=== PATIENT | male | born 1960 | race African-American/Black ===

== ENCOUNTER → 2016-05-30 | Outpatient (CLI) | payer OTHER ==
[2016-05-30 10:02] LABS: CALCIUM 9.4 mg/dL (8.5-10.1); CREATININE 1.1 mg/dL (0.7-1.3); GFR 83.5; POTASSIUM 5.8 mmol/L (3.5-5.1); TOTAL BILIRUBIN 0.9 mg/dL (0.2-1.0); TOTAL PROTEIN 8.2 g/dL (6.4-8.2)
[2016-05-30 10:04] LABS: CHOLESTEROL/HDL RATIO 2.3
== END | disposition home or self-care (01) ==
LOC: LAB 08:52
PROVIDERS: ATTEND Family Medicine
DX: E78.5 Hyperlipidemia, unspecified (principal)
CPT/HCPCS: 36415; 80053; 80061; 83036

== ENCOUNTER → 2016-07-10 | Outpatient (CLI) | payer OTHER ==
[2016-07-10 11:32] LABS: CALCIUM 9.5 mg/dL (8.5-10.1); GFR 93.2; POTASSIUM 4.4 mmol/L (3.5-5.1)
== END | disposition home or self-care (01) ==
LOC: LAB 10:52
PROVIDERS: ATTEND Family Medicine
DX: I10 Essential (primary) hypertension (principal)
CPT/HCPCS: 36415; 80048

== ENCOUNTER → 2016-08-09 | Outpatient (CLI) | payer OTHER ==
[2016-08-09 11:53] LABS: CALCIUM 9.3 mg/dL (8.5-10.1); CHOLESTEROL/HDL RATIO 2.3; CREATININE 0.9 mg/dL (0.7-1.3); GFR 105.2; POTASSIUM 4.6 mmol/L (3.5-5.1)
== END | disposition home or self-care (01) ==
LOC: LAB 11:00
PROVIDERS: ATTEND Family Medicine
DX: E78.5 Hyperlipidemia, unspecified (principal)
CPT/HCPCS: 36415; 80048; 80061; 83735

== ENCOUNTER → 2017-02-05 | Outpatient (CLI) | payer OTHER ==
[2017-02-05 09:01] LABS: ALBUMIN 3.6 g/dL (3.4-5.0); ALBUMIN/GLOBULIN RATIO 0.8 (1.0-1.7); CALCIUM 9.3 mg/dL (8.5-10.1); CREATININE 1.1 mg/dL (0.7-1.3); GFR 83.2; MAGNESIUM 2.2 mg/dL (1.8-2.4); POTASSIUM 4.7 mmol/L (3.5-5.1); TOTAL BILIRUBIN 0.8 mg/dL (0.2-1.0); TOTAL PROTEIN 8.1 g/dL (6.4-8.2)
[2017-02-05 09:04] LABS: CHOLESTEROL/HDL RATIO 2.8
== END | disposition home or self-care (01) ==
LOC: LAB 08:35
PROVIDERS: ATTEND Family Medicine
DX: Z12.5 Encounter for screening for malignant neoplasm of prostate (principal); E83.42 Hypomagnesemia; R73.09 Other abnormal glucose
CPT/HCPCS: 36415; 80053; 80061; 83036; 83735; G0103

== ENCOUNTER → 2018-01-08 | Outpatient (CLI) | payer OTHER ==
[2018-01-08 08:44] LABS: ALBUMIN 3.9 g/dL (3.4-5.0); ALBUMIN/GLOBULIN RATIO 0.8 (1.0-1.7); CALCIUM 9.5 mg/dL (8.5-10.1); CREATININE 1.2 mg/dL (0.7-1.3); POTASSIUM 4.7 mmol/L (3.5-5.1); TOTAL BILIRUBIN 0.9 mg/dL (0.2-1.0); TOTAL PROTEIN 8.7 g/dL (6.4-8.2)
[2018-01-08 08:45] LABS: CHOLESTEROL/HDL RATIO 2.9
[2018-01-08 15:29] LABS: HEMOGLOBIN A1C 5.8 % (4.8-5.6)
== END | disposition home or self-care (01) ==
LOC: LAB 08:04
PROVIDERS: ATTEND Family Medicine
DX: Z12.5 Encounter for screening for malignant neoplasm of prostate (principal); E78.5 Hyperlipidemia, unspecified; E74.39 Other disorders of intestinal carbohydrate absorption; I10 Essential (primary) hypertension; E83.42 Hypomagnesemia
CPT/HCPCS: 36415; 80053; 80061; 83036; G0103

== ENCOUNTER 2018-03-14 18:43 | Emergency (ER) | payer OTHER ==
[~2018-03-14] VITALS: Ht 182.9 cm; Wt 175.1 kg
[2018-03-14 18:54] VITALS: BP 154/86
--- NOTE | 2018-03-14 19:21 | PHYS DOC ---
Past Medical History Past Medical History: Arthritis, High Cholesterol, Hypertension Additional Past Medical Histor: sleep apnea Past Surgical History: No Surgical History Alcohol Use: Occasionally Drug Use: None Adult General Chief Complaint Chief Complaint: BACK PAIN - NO INJURY [facility] HPI Patient is a 57 year old AA male who presents to emergency room with complaints of mid upper back pain for the last month. Patient states he saw his primary care doctor who prescribed him 800 mg of ibuprofen 3 times a day, however he did not start taking that medication as prescribed. Patient denies any known injury, saddle anesthesia, numbness, tingling, or weakness. Patient states that the pain increases when he changes positions. He denies any chest pain, palpitations, increased shortness of breath, nausea, vomiting, or abdominal pain. Review of Systems Review of Systems Constitutional: Denies fever or chills, obese [] Respiratory: Denies shortness of breath, reports recent dry cough Cardiovascular: No additional information not addressed in HPI [] GI: Denies abdominal pain, nausea, vomiting, or diarrhea [] Musculoskeletal: See history of present illness Integument: Denies rash or skin lesions [] Neurologic: Denies headache, focal weakness or sensory changes [] All other systems were reviewed and found to be within normal limits, except as documented in this note. Allergies Allergies Allergies Coded Allergies Type Severity Reaction Last Updated Verified No Known Drug Allergies 03/14/18 No Physical Exam Physical Exam Constitutional: Well developed, well nourished, no acute distress, non-toxic appearance, obese [] HENT: Normocephalic, atraumatic, bilateral external ears normal, oropharynx moist, no oral exudates, nose normal. [] Eyes: PERRLA, conjunctiva normal, no discharge. [] Neck: Normal range of motion, no tenderness, supple, no stridor. [] Cardiovascular:Heart rate regular rhythm, no murmur [] Lungs & Thorax: Bilateral breath sounds clear to auscultation [] Skin: Warm, dry, no erythema, no rash. [] Back: T-spine tenderness to palpation Extremities: No cyanosis, no clubbing, ROM intact, no edema. [] Neurologic: Alert and oriented X 3, normal motor function, normal sensory function, no focal deficits noted. [] Psychologic: Affect normal, judgement normal, mood normal. [] Current Patient Data Vital Signs Vital Signs Date Time Temp Pulse Resp B/P (MAP) Pulse Ox O2 Delivery O2 Flow Rate FiO2 03/14/18 18:54 98.5 76 20 154/86 (108) 96 Room Air 98.5 EKG EKG [] Radiology/Procedures Radiology/Procedures Tspine xray negative for any acute findings read by Dr. Smiley[] Course & Med Decision Making Course & Med Decision Making Pertinent Labs and Imaging studies reviewed. (See chart for details) Dx: thoracic strain Continue taking ibuprofen 800 mg tid. Prescription for norflex. Recommend application of ice or heat as needed for comfort. Follow up with PCP next week as planned, return to ER if symptoms worsen. []Patient verbalized an understanding of home care, medications, follow-up, and return to ED instructions and was in agreement with the plan of care. Dragon Disclaimer Dragon Disclaimer This electronic medical record was generated, in whole or in part, using a voice recognition dictation system. Departure Departure Impression: Primary Impression: Midline thoracic back pain Disposition: HOME, SELF-CARE Condition: STABLE Referrals: PITA MCKAY MD (PCP) Patient Instructions: Back Pain, Adult, [id number] Additional Instructions: Fill prescription and use as directed. Continue taking ibuprofen 800 mg tid. Recommend application of ice or heat as needed for comfort. Follow up with PCP next week as planned, return to ER if symptoms worsen. [] Scripts Orphenadrine Citrate (ORPHENADRINE CITRATE) 100 Mg Tablet.er 1 TAB PO BID PRN for PAIN for 10 Days, #20 TAB 0 Refills Prov: RIZWANA [employer] 03/14/18 Problem Qualifiers Primary Impression: Midline thoracic back pain Chronicity: unspecified Qualified Codes: M54.6 - Pain in thoracic spine RIZWANA [employer] Mar 14, 2018 19:21
[2018-03-14] MEDS ORDERED: ORPH100T PO (20:06)
--- NOTE | 2018-03-14 23:51 | RAD ---
Examination: THORACIC SPINE 3V History: upper spine pain, no injury Comparison/Correlation: None Findings: A total of 4 images of the thoracic spine were obtained including frontal, lateral, and swimmer's lateral views. Alignment is normal. Vertebral body heights are adequate. Spurring of the lower thoracic spine is significant anteriorly. Disc space narrowing at multiple levels of the mid to lower thoracic spine is mild. Impression: Degenerative spurring of the lower thoracic spine. Electronically signed by: Omar Shoemaker MD (03/14/2018 11:48 PM) [facility]
== END 2018-03-14 20:07 | disposition home or self-care (01) ==
LOC: ER 18:43
DX: M54.6 Pain in thoracic spine (principal); M19.90 Unspecified osteoarthritis, unspecified site; E78.00 Pure hypercholesterolemia, unspecified; I10 Essential (primary) hypertension; G47.30 Sleep apnea, unspecified
CPT/HCPCS: 72072; 99284

== ENCOUNTER → 2018-07-08 | Outpatient (CLI) | payer OTHER ==
[~2018-07-08] MED LIST: ORPH100T PO
[2018-07-08 08:31] LABS: BASO # 0.1 x10^3/uL (0.0-0.2); BASO % 1 % (0-3); EOS # 0.2 x10^3/uL (0.0-0.7); EOS % 3 % (0-3); HEMOGLOBIN 14.2 g/dL (13.0-17.5); LYMPH # 1.8 x10^3/uL (1.0-4.8); LYMPH % 25 % (24-48); MEAN CORPUSCULAR HEMOGLOBIN 30 pg (25-35); MEAN CORPUSCULAR HGB CONC 34 g/dL (31-37); MEAN CORPUSCULAR VOLUME 89 fL (79-100); MONO # 0.8 x10^3/uL (0.0-1.1); MONO % 12 % (0-9); NEUT # 4.3 x10^3uL (1.8-7.7); NEUT % 60 % (31-73); PLATELET COUNT 235 x10^3/uL (140-400); RED BLOOD COUNT 4.72 x10^6/uL (4.30-5.70); RED CELL DISTRIBUTION WIDTH 14.4 % (11.5-14.5); WHITE BLOOD COUNT 7.3 x10^3/uL (4.0-11.0)
[2018-07-08 08:57] LABS: ALBUMIN 4.3 g/dL (3.4-5.0); CALCIUM 9.3 mg/dL (8.5-10.1); CREATININE 0.8 mg/dL (0.7-1.3); GFR 119.7; POTASSIUM 4.3 mmol/L (3.5-5.1); TOTAL BILIRUBIN 0.3 mg/dL (0.2-1.0); TOTAL PROTEIN 8.4 g/dL (6.4-8.2)
[2018-07-08 08:59] LABS: CHOLESTEROL/HDL RATIO 4.6
[2018-07-08 22:09] LABS: HEMOGLOBIN A1C 5.9 % (4.8-5.6)
== END | disposition home or self-care (01) ==
LOC: LAB 08:13
PROVIDERS: ATTEND Family Medicine
DX: E74.39 Other disorders of intestinal carbohydrate absorption (principal); I10 Essential (primary) hypertension; E78.5 Hyperlipidemia, unspecified
CPT/HCPCS: 36415; 80053; 80061; 83036; 85025

== ENCOUNTER → 2018-11-18 | Outpatient (CLI) | payer OTHER ==
[~2018-11-18] MED LIST changes: +ZOLPIDEM 5 MG TABLET. PO ONE
--- NOTE | 2018-11-19 13:04 | SLEEP ---
DATE OF STUDY: 11/18/2018 ATTENDING PHYSICIAN: Dr. Ruiz. The patient is a 58-year-old who weighs 375 pounds with a BMI of 52. The patient has history of PARAM diagnosed at another facility. The patient has lost 20 pounds since this last study and was referred back for a split night study. During the night study, the patient spent 423 minutes in bed and slept for 283 minutes with a sleep efficiency of 67%. Sleep latency was prolonged at 110 minutes with a REM latency of 156 minutes. Overall, sleep architecture showed normal stage 1 sleep, increased stage 2 sleep, normal slow wave and normal REM sleep. During the initial diagnostic portion of the study, the patient slept for 69 minutes. During that time, there were 66 obstructive apneas, no mixed or central apneas, and 46 hypopneas. The patient's apnea-hypopnea index was 97 per hour, supine index 105 per hour. REM sleep was not seen. Nocturnal oximetry study revealed a mean oxygen saturation of 92% with lowest of 80%. Forty minutes were spent in oxygen saturation between 80% and 89%. PLMS were seen at index of 17 per hour, 1 per hour caused EEG arousals. EKG showed a mean heart rate of 73 beats per minute, occasional PACs seen. No sustained arrhythmias observed. The patient was started on CPAP at a pressure of 7 cm water and titrated up to 15 cm water. At the final pressure, the patient slept for 155 minutes. The patient had supine as well as REM sleep. The patient's AHI was reduced to 2 per hour and oxygen saturation remained above 88%. The patient used a medium size full face mask. IMPRESSION: 1. Severe sleep apnea-hypopnea syndrome at an AHI of 97 per hour. 2. Nocturnal hypoxia secondary to obstructive sleep apnea, but resolved with CPAP. 3. Mild PLMS. This does not need to be treated unless the patient has symptoms of restless legs during the day. RECOMMENDATIONS: 1. CPAP at 15 cm water completely eliminated the patient's sleep apnea and should be used on a nightly basis. 2. Follow up in 4-6 weeks to assess compliance with CPAP and to document clinical improvement. 3. Weight loss is strongly advised. 4. Avoid REWEAVER depressants. 5. Caution regarding driving until symptoms of sleep apnea resolve with the use of CPAP. MIGUELANGEL DURAN MD DR: ENMA/que JOB#: [id number] / [id number] PITA Hill MD
== END | disposition home or self-care (01) ==
LOC: SLPLAB 20:35
PROVIDERS: ATTEND Family Medicine
DX: G47.33 Obstructive sleep apnea (adult) (pediatric) (principal)
CPT/HCPCS: 95810